=== PATIENT | female | born 1935 | race Caucasian/White ===

== ENCOUNTER 2017-04-30 22:26 | Inpatient (IN) | payer MEDICARE, OTHER, MEDICAID ==
[~2017-04-30] VITALS: Ht 170.2 cm; Wt 77.6 kg
--- NOTE | ~2017-04-30 | OR ---
PATIENT'S NAME: WINSTON [facility] AGE: 81 Y [address] ROOM: [place] [address] LOCATION: GPCU ADMIT DATE: 04/30/2017 OR/Procedure Report DISCHARGE DATE: FAMILY PHYSICIAN: Patricia Espinoza MD ATTENDING PHYSICIAN: CRISTIAN LUZ SURGEON: Cristian Luz MD DISHCLOTH FOLDER: DATE OF PROCEDURE: 05/01/2017 PREOPERATIVE DIAGNOSIS: Postoperative hematoma. POSTOPERATIVE DIAGNOSIS: Postoperative hematoma. PROCEDURE: Evacuation of hematoma of left arm. SPEEDER OPERATOR: MARY Wall. ANESTHESIA: General. ESTIMATED BLOOD LOSS: 100 mL. OPERATIVE FINDINGS: Just generalized oozing from all tissues structures within the operative wound cauterized and packed with Surgicel to stop bleeding. DESCRIPTION OF PROCEDURE: The patient was brought to the operating room emergently from the emergency room. The patient had a left arm brachiocephalic fistula placed early that day and was discharged home with a small hematoma present with a large hematoma some 12 hours later. The patient was prepped and draped in a sterile manner. Preoperative time-out was performed. The patient received preoperative antibiotics. We opened up her previous incision. We evacuated a large amount of clot. We copiously irrigated the wound, removing any further clot, the fistula was still palpable and working officially. After exploring the entire wound, we did not find a single bleeding source, but it appeared her entire tissue bed was just continuously oozing. We used Bovie cautery to Bovie all the oozing tissue and then packed the wound with Surgicel and then we closed the wound with interrupted nylon mattress sutures. The patient tolerated the procedure well and transferred to recovery room and then up to the floor. CRISTIAN LUZ MD PATIENT'S NAME: WINSTON [facility] AGE: 81 Y [address] ROOM: [place] [address] LOCATION: GPCU ADMIT DATE: 04/30/2017 OR/Procedure Report DISCHARGE DATE: FAMILY PHYSICIAN: Patricia Espinoza MD ATTENDING PHYSICIAN: CRISTIAN LZUM/modl /[id number] d: 05/01/17 1821 t: 05/05/17 1544, OPERATIVE SUMMARY
--- NOTE | ~2017-04-30 | ER ---
PATIENT'S NAME: WINSTON WHITLEY [facility] AGE: 81 Y [address] ROOM: [place] [address] LOCATION: GPCU ADMIT DATE: 04/30/2017 ER/Outpatient Report DISCHARGE DATE: FAMILY PHYSICIAN: Patricia Espinoza MD ATTENDING PHYSICIAN: GLENN LUZ CHIEF COMPLAINT: Surgical site bleeding. HISTORY OF PRESENT ILLNESS: Ms Whitley had a fistula creation by Dr. Luz earlier today. She has had significant bleeding and pain since then. Her blood pressures have been low today, lower than normal. She came into the ER at the direction of Dr. Luz. She has pain in her left arm. No other acute findings or concerns related to this issue today. PAST MEDICAL HISTORY: As documented on the record and have been reviewed by me. SOCIAL HISTORY: As documented on the record and have been reviewed by me. MEDICATIONS: As documented on the record and have been reviewed by me. ALLERGIES: DOCUMENTED ON THE RECORD AND HAVE BEEN REVIEWED BY ME. REVIEW OF SYSTEMS: All systems are reviewed and negative as pertinent to this issue other than discussed in HPI. PHYSICAL EXAMINATION: VITAL SIGNS: Blood pressure 90s/60s, pulse is in the 80s, respiratory rate 20, temperature 98.6, SpO2 is 90% on 2 L nasal cannula. Pain is 5/10. GENERAL: An elderly, frail-appearing female, in obvious discomfort. No respiratory distress, sitting upright on the exam table. NEUROLOGIC: Awake and alert. GCS 15. HEENT: Normocephalic, atraumatic. Eyes are PERRL. Oropharynx is clear, slightly dry. NECK: Supple. Trachea is midline. CHEST/HEART: Regular rate and rhythm. No murmurs. LUNGS: Grossly clear to auscultation. ABDOMEN: Benign. EXTREMITIES: Left upper extremity is notable for large area of ecchymosis. PATIENT'S NAME: WINSTON WHITLEY [facility] AGE: 81 Y [address] ROOM: [place] [address] LOCATION: GPCU ADMIT DATE: 04/30/2017 ER/Outpatient Report DISCHARGE DATE: FAMILY PHYSICIAN: Patricia Espinoza MD ATTENDING PHYSICIAN: GLENN LUZ No skin discoloration and tenderness at the surgical site on the left forearm. She has perfusion distally. She is neurovascularly intact otherwise. No deformities or other acute issues are visible. SKIN: Appears to be intact otherwise. LABORATORY DATA AND X-RAYS: None. IMPRESSION: Postsurgical bleeding. EMERGENCY DEPARTMENT COURSE: The patient was seen and evaluated by Dr. Luz. I gave her a medical screening exam initially upon evaluation in the emergency department. The patient will be taken to the operating room with Dr. Luz for further evaluation and treatment. MD NISHANT ABBOTT/marti /[id number] d: 05/01/17 0854 t: 05/04/17 1243, OUTPATIENT REPORT
--- NOTE | ~2017-04-30 | DS ---
PATIENT'S NAME: WINSTON MOORE [facility] AGE: 82 Y [address] ROOM: [address] [address] LOCATION: GPCU ADMIT DATE: 04/30/2017 Discharge Summary DISCHARGE DATE: 05/05/2017 FAMILY PHYSICIAN: Patricia Espinoza MD ATTENDING PHYSICIAN: Cristian Luz FINAL DIAGNOSIS: End-stage renal disease, left arm hematoma, postop arteriovenous fistula. SECONDARY DIAGNOSES: 1. Thrombocytopenia. 2. Chronic atrial fibrillation. 3. Long-term anticoagulation. 4. Essential hypertension. 5. Anemia of chronic kidney disease. 6. Pulmonary hypertension. 7. Chronic hypoxic respiratory failure. 8. Abdominal aortic aneurysm, postop repair. PROCEDURES: Left arm exploration and hematoma evacuation by Dr. Luz on 05/01/2017. CONSULTATIONS: Hospitalist for medication management. Implementation Architect, Dr. Jason Medina, for dialysis. HOSPITAL COURSE: This is an 81-year-old female who underwent elective creation of left upper extremity brachiocephalic fistula on 04/30/2017. The patient was discharged from this outpatient surgery with a small hematoma. Later in the evening, she returned to the emergency room with swelling, ecchymosis, and pain at site with low blood pressures. The patient was taken to the operating room after being evaluated in the emergency room by Dr. Luz on 05/01/2017 for evacuation of hematoma of the left arm. She was found to have generalized oozing from all tissue structures within the operative wound, which was cauterized and packed with Surgicel to stop bleeding. The patient tolerated the procedure well and after recovery was admitted to the progressive care unit for monitoring of telemetry, vitals, labs, surgical site, pain management, medications administration, and nursing assistance. The Hospitalist Team was consulted for medication management. The patient's Coumadin and aspirin were placed on hold due to prolonged bleeding. The patient's diet was advanced as tolerated. She received normal saline postoperatively as well as Ancef continued for 3 days. On postop day #1, her pain was found to be improved and blood pressure was controlled. Her hemoglobin was 9.0. Dr. Luz recommended holding anticoagulation for a total of 10 days. On postop day #2, the patient was found to have continued oozing and bloody drainage from this site with saturated dressing. Platelets PATIENT'S NAME: WINSTON MOORE [facility] AGE: 82 Y [address] ROOM: [id number] [place] [address] LOCATION: GPCU ADMIT DATE: 04/30/2017 Discharge Summary DISCHARGE DATE: 05/05/2017 FAMILY PHYSICIAN: Patricia Espinoza MD ATTENDING PHYSICIAN: Cristian Luz were noted to be 64, therefore the patient was transfused 2 units of platelets. Pain still improved. Generalized edema and ecchymosis to the left upper extremity, which was wrapped with compression wrap. On postop day #3, the patient did receive a chest x-ray for episode of hemoptysis. Impression, bilateral pleural fluid collection with adjacent lung consolidation, cardiac enlargement with vascular congestion, and aortic vascular stent and right jugular dialysis catheter in place. The patient received 100 mg of IV Lasix x1. Nephrology was consulted. The patient with known end-stage renal disease, requiring hemodialysis on Wednesday, Wednesday, and Wednesday. The patient was chronically started on dialysis, 03/31/2017. Once IV Ancef was completed, the patient was started on p.o. Levaquin 500 mg p.o. every 48 hours x4 doses. The patient had significant erythema, likely related to an inflammatory response. Ecchymosis to arm as expected. Also, on postop day #3, after dialysis, the patient had 7 beats of ventricular tachycardia. A stat magnesium, BMP, troponin, CK, CK-MB, lactate, procalcitonin, and prealbumin was drawn. On postop day #4, vitamin B12, repeat troponin, and cardiac enzymes were drawn and the patient was started on protein supplements for moderate protein malnutrition. She was also encouraged to use incentive spirometry. It was assumed the troponin leak was likely related to end-stage renal disease. EKG was reviewed by hospitalist. The patient with chronic atrial fibrillation and inverted T-waves. They recommend followup with encapsulator as soon as possible after discharge for diastolic congestive heart failure. On postop day #5, the patient was found in a stable condition to be discharged home. DIAGNOSTICS: Labs trending. White blood cell count 5, 6.2, 6.4, 8.6, and 8.2. Hemoglobin 9, 9.7, 9.2, 10.1, and 10. Platelets 55, 64, 96, 88, and 82. CPK is 1924. CK-MB 2 and 1.7. Troponin 0.059 and then less than 0.04. Lactate 2.6. Magnesium 2.1. Vitamin B12 of 441. DISCHARGE ORDERS: The patient is to be discharged home on a cardiac prudent diet. Activity as tolerated. She is to follow up with Dr. Espinoza in 5 to 7 days with CBC and CMS. She is to follow up with Dr. Luz in 2 weeks. She is to report any signs or symptoms of infection including increased redness, swelling, any fevers, chills, or new drainage. DISCHARGE MEDICATIONS: 1. Acetaminophen 325 to 650 mg p.o. every 4 hours as needed for mild pain. 2. Norvasc 5 mg p.o. daily. 3. Hydrocortisone cream 1 application rectally twice daily as needed for itching. 4. Benzocaine menthol 1 lozenge orally as needed for cough. 5. Claritin 10 mg p.o. every 48 hours. 6. Colace 100 mg p.o. twice daily as needed for constipation. 7. Coreg 25 mg p.o. daily. PATIENT'S NAME: WINSTON MOORE [facility] AGE: 82 Y [address] ROOM: [place] [address] LOCATION: GPCU ADMIT DATE: 04/30/2017 Discharge Summary DISCHARGE DATE: 05/05/2017 FAMILY PHYSICIAN: Patricia Espinoza MD ATTENDING PHYSICIAN: Cristian Luz 8. Dulcolax suppository 10 mg rectally every day as needed for constipation. 9. Flonase 50 mcg 1 spray nasally every day as needed for allergies. 10. Ipratropium/albuterol sulfate 1 dose inhaled 4 times daily as needed for shortness of breath. 11. Kayexalate 30 orally twice daily as needed for missed dialysis. 12. Synthroid 25 mcg p.o. every day before breakfast. 13. MiraLax 17 grams orally every day as needed for constipation. 14. Zofran 4 mg p.o. 4 times daily as needed for nausea. 15. Oxygen, continues per physician order, 2 L. 16. Pepcid 20 mg p.o. daily. 17. Prednisone 10 mg p.o. daily with food. 18. Vitamin D3, 2000 units p.o. daily. 19. [place] 5/325 one to two tablets p.o. every 4 hours as needed for pain. 20. Levaquin 500 mg p.o. every 48 hours. DISPOSITION: The patient is discharged home in a stable condition. She is to follow discharge orders as prescribed. Education about discharge including incisional care, medications, prescriptions, diet, activity, and followup appointments given to the patient. The patient verbalized understanding of the plan and had no further questions or concerns. She is to follow discharge orders as prescribed. SHERIDAN MONTOYA APRN FOR CRISTIAN LUZ MD TO/marti /[id number] d: 06/08/17 0141 t: 06/08/17 1459, DISCHARGE SUMMARY
--- NOTE | ~2017-04-30 | CON ---
PATIENT'S NAME: WINSTON [facility] AGE: 81 Y [address] ROOM: [place] [address] [facility] ADMIT DATE: 04/30/2017 Consultation DISCHARGE DATE: FAMILY PHYSICIAN: Patricia Espinoza MD ATTENDING PHYSICIAN: GLENN LUZ DATE OF CONSULTATION: 05/03/2017 REFERRING PHYSICIAN: GIANNI SYKES MD This is a [facility] Nephrology consultation. REASON FOR CONSULTATION: End-stage renal disease, on hemodialysis therapy. HISTORY OF PRESENT ILLNESS: This is an 81-year-old female patient, who is status post fistula creation by Dr. Luz on Wednesday, who developed a hematoma requiring evacuation later that day. The patient does have a history of end-stage renal disease and is on hemodialysis in [place] on Wednesday, Wednesday, and Wednesday. The patient was recently started on chronic dialysis on March 31, 2017. She currently runs on hemodialysis with a tunneled dialysis catheter for 4 hours, blood flow rate at 400, dialysis flow rate at 800 mL a minute, her estimated dry weight is 75.5 kg. She does run on a 2K bath with 2.25 calcium, 1.0 Mag, 139 sodium, and bicarbonate of 32. The patient was scheduled for outpatient left forearm AV fistula placement with Dr. Luz and according to the patient, the procedure did go well. She however subsequently later that day developed hematoma and did require a procedure to remove evacuated clot from the fistula by Dr. Luz. Therefore due to the patient's history of end-stage renal disease requiring hemodialysis therapy, Nephrology has been asked to consult and manage her dialysis while she is hospitalized. PAST MEDICAL HISTORY: 1. End-stage renal disease. 2. Atrial fibrillation. 3. Long-term anticoagulation. 4. Stenting of the aorta. 5. Renovascular hypertension. 6. Allergic rhinitis. 7. Constipation. 8. Hypothyroidism. 9. GERD. SOCIAL HISTORY: Reviewed. It is negative for any history of alcohol use, drug use, or smoking. FAMILY HISTORY: Reviewed and is noncontributory. There is no history of renal disease or dialysis. PATIENT'S NAME: WINSTON [facility] AGE: 81 Y [address] ROOM: [place] [address] [facility] ADMIT DATE: 04/30/2017 Consultation DISCHARGE DATE: FAMILY PHYSICIAN: Patricia Espinoza MD ATTENDING PHYSICIAN: GLENN LUZ ALLERGIES: METOPROLOL, ATORVASTATIN, NIACIN, AND HYDROCHLOROTHIAZIDE. CURRENT HOME MEDICATIONS: 1. Tylenol 325 mg q.4 hours p.r.n. pain. 2. Norvasc 5 mg daily. 3. Anusol-HC cream one application rectally b.i.d. p.r.n. itching. 4. Aspirin 81 mg daily. 5. Cepacol sore throat lozenge p.r.n. cough. 6. Claritin 10 mg daily. 7. Colace 100 mg twice a day p.r.n. constipation. 8. Coreg 25 mg daily. 9. Dulcolax 10 mg rectally daily. 10. Flonase 50 mcg two puffs nasally p.r.n. allergies. 11. Ipratropium albuterol 1 dose inhalation q.i.d. p.r.n. shortness of breath. 12. Kayexalate 30 g p.o. b.i.d. p.r.n. missed dialysis. 13. Synthroid 25 mcg daily. 14. MiraLax 17 g p.o. daily p.r.n. constipation. 15. Zofran 4 mg p.o. q.i.d. p.r.n. nausea. 16. Oxygen. 17. Pepcid 20 mg daily. 18. Deltasone 10 mg daily. 19. Vitamin D3 2000 units daily. 20. Coumadin 5 mg p.o. one day of the week and 2.5 mg six days of the week. 21. [place] 5/325 one to two tablets p.o. q.4 hours p.r.n. pain. REVIEW OF SYSTEMS: GENERAL: Fatigue EYES: No double vision or blurred vision. EARS: Hard of hearing NOSE: No epistaxis THROAT: No sore throat or cough RESPIRATORY: Dyspnea CARDIOVASCULAR: No chest pain or palpitations. GASTROINTESTINAL: No nausea or diarrhea. NO vomiting. GENITOURINARY: No frequency or hesitancy. MUSCULSKELETAL: generalized arthralgias, no new myalgias or arthralgias NEUROLOGICAL: No new numbness or tingling HEMATOLOGICAL: see HPI IMMUNOLOGICAL: no recent infections. PATIENT'S NAME: WINSTON [facility] AGE: 81 Y [address] ROOM: [id number] [place] [address] LOCATION: GPCU ADMIT DATE: 04/30/2017 Consultation DISCHARGE DATE: FAMILY PHYSICIAN: Patricia Espinoza MD ATTENDING PHYSICIAN: GLENN LUZ PHYSICAL EXAMINATION: VITAL SIGNS: Blood pressure is 105/75, pulse is 87, respirations 16, temperature is 97.7, weight is 80.5 kg. GENERAL: On exam, this is a very pleasant, elderly white female, who appears her approximate stated age, is in no acute distress. HEENT: Her head is normocephalic and atraumatic. Eyes: Pupils are equal, round, and reactive to light and accommodation. Nose midline. Mouth, no gingival bleeding. Throat without lymphadenopathy or carotid bruits. LUNGS: Lung sounds are clear to auscultation anteriorly and posteriorly. CARDIOVASCULAR: There is irregularly irregular rate and rhythm. Unable to appreciate any murmurs, rubs, or thrills. ABDOMEN: Soft, nontender, and nondistended. Bowel sounds positive. EXTREMITIES: Left upper extremity AV fistula with positive thrill noted. There is also ecchymotic area noted to the left upper arm. There is 1 to 2+ lower extremity edema bilaterally. NEUROLOGIC: Cranial nerves II through XII are grossly intact. LABORATORY DATA: Glucose 134, BUN is 48, creatinine 4.6, sodium 136, potassium 4.7, chloride 99, CO2 of 25, calcium 8.0, albumin 2.7, phos is 5.6, magnesium 2.1. ASSESSMENT AND PLAN: 1. End-stage renal disease, on hemodialysis. We will obtain the patient's outpatient clinical record and provide hemodialysis accordingly. At this time, the patient will initiate hemodialysis and run for 4 hours on a 2K bath. She will run at a blood flow of 400 mL/minute as well as dialysis flow rate of x1.5 the blood flow rate. She will be placed on dialysate bath of sodium 138 and bicarbonate 32. We will ultrafiltrate her as tolerated with labile blood pressures. We will utilize midodrine as needed as well as albumin. 2. Left arteriovenous fistula complication. The patient is status post evacuation of a hematoma with Dr. Luz. Further recommendations will be forthcoming. 3. Iron-deficiency anemia. The patient is to continue her regularly scheduled Venofer while on dialysis. 4. Anemia of chronic disease. Venofer. This patient has been seen and assessed by Dr. Medina. Her care is being conducted in consultation with Dr. Medina as well as me. We will plan further recommendations as they are forthcoming. JHONATAN LOPEZ DNP, CLAIM SERVICE REPRESENTATIVE FOR [facility] JAMEL MEDINA MD ENS/modl /[id number] d: 05/05/17 0013 t: 05/19/17 1012, CONSULTATION REPORT
--- NOTE | ~2017-04-30 | CON ---
PATIENT'S NAME: WINSTON MOORE [facility] AGE: 81 Y [address] ROOM: [place] [address] LOCATION: GPCU ADMIT DATE: 04/30/2017 Consultation DISCHARGE DATE: FAMILY PHYSICIAN: Patricia Espinoza MD ATTENDING PHYSICIAN: GLENN LUZ DATE OF CONSULTATION: 05/01/2017 REFERRING PHYSICIAN: GIANNI SYKES MD REQUESTING PHYSICIAN: Dr. Luz REASON FOR CONSULTATION: Postoperative management. HISTORY OF PRESENT ILLNESS: The patient is an 81-year-old female with past medical history most significant for end-stage renal disease, currently on hemodialysis through right-sided catheter. The patient has undergone an elective placement of a left upper extremity fistula earlier with Dr. Luz today. Apparently, this was an outpatient procedure and subsequently the patient developed a large hematoma around the op site and had to come back for an evacuation of that hematoma, which was just done. At this point, the patient reports that the pain that she had at the op site previously has resolved. She denies any chest pain, shortness of breath, nausea, vomiting, or diarrhea. REVIEW OF SYSTEMS: All systems have been reviewed and are negative aside from pertinent positives mentioned above. PAST MEDICAL HISTORY: This may not be complete as very limited information is available at this point in the night, but the patient does report a past medical history of atrial fibrillation, on anticoagulation; end-stage renal disease; and an open "stent" in her aorta. CURRENT MEDICATIONS: Unavailable, but being compiled by the nursing staff. SOCIAL HISTORY: Negative for any history of ongoing toxic habits. FAMILY HISTORY: PATIENT'S NAME: WINSTON MOORE [facility] AGE: 81 Y [address] ROOM: [place] [address] LOCATION: GPCU ADMIT DATE: 04/30/2017 Consultation DISCHARGE DATE: FAMILY PHYSICIAN: Patricia Espinoza MD ATTENDING PHYSICIAN: GLENN LUZ Reviewed and noncontributory. PHYSICAL EXAMINATION: VITAL SIGNS: Blood pressure 87/52, heart rate is in the 70s and irregular, saturating 96% on 3 L nasal cannula, afebrile, respirations 16. GENERAL: Appears as a chronically ill, elderly female, in no acute distress. NEUROLOGIC: Nonfocal. HEENT: Eye exam shows pupils are equal and reactive to light. LYMPHATIC: No cervical lymphadenopathy. ENDOCRINE: No thyromegaly. LUNGS: Clear to auscultation. HEART: Heart rate is irregular with no appreciable murmurs, gallops, or rubs. GI: Abdomen is soft, nontender, nondistended. : No costovertebral angle tenderness. VASCULAR: 2+ pedal pulses. EXTREMITIES: Left upper extremity exam is deferred. PSYCHIATRIC: Pleasant, but quite lethargic elderly female with appropriate mood, cognition, and affect. LABORATORY DATA: No studies are available as of now. IMPRESSION AND RECOMMENDATIONS: This is an 81-year-old female, postoperative day 0 for evacuation of hematoma around the site of recently placed arteriovenous fistula. We will help manage the patient's postoperative course. We will hold off on her antiplatelets and blood thinners as requested by Vascular Surgery. We will need to obtain some additional medical information in the morning. Thank you for allowing us to participate in the care of this yaquelin lady. Time dedicated to this patient's encounter is 15 minutes. MD NARINDER WILKINS/marti /[id number] d: 05/01/17 0524 t: 06/10/17 1826, CONSULTATION REPORT
[~2017-04-30 22:26] MED LIST changes: -LEVAQUIN500 MG PO
[2017-05-01 04:41] LABS: BASOPHIL # 0.1 K/uL (0.0-0.2); BASOPHIL % 1.2 %; EOSINOPHIL # 0.3 K/uL (0.0-0.5); EOSINOPHIL % 6.6 %; HEMATOCRIT 28.5 % (30.0-46.0); IMMATURE GRANULOCYTE % 0.8 %; LYMPHOCYTE # 0.6 K/uL (0.8-4.0); LYMPHOCYTE % 11.1 %; MCH 32.7 pg (27.0-34.0); MCHC 31.6 gm/dL (32.0-36.5); MCV 103.6 fl (83.0-98.0); MONOCYTE # 0.5 K/uL (0.0-1.0); MONOCYTE % 9.7 %; MPV 12.3 fl (9.4-12.4); NEUTROPHIL # (ANC) 3.6 K/uL (1.8-7.8); NEUTROPHIL % 70.6 %; NRBC % 0 /100WBC (0-0.00); RBC 2.75 M/uL (3.00-5.00); RDW-CV 18.3 % (11.9-14.6)
[2017-05-01 04:48] LABS: INR - (THERAPEUTIC) 1.31 (0.92-1.07); PROTIME 13.8 SECONDS (9.8-11.4)
[2017-05-01 04:51] LABS: PLATELET COUNT 55 K/uL (150-450)
[2017-05-01 04:59] LABS: ANION GAP 8.8 (10.0-19.0); CREATININE 2.7 mg/dL (0.5-1.1); POTASSIUM 3.8 mMol/L (3.7-5.1)
[2017-05-01 05:02] LABS: CALCIUM 7.4 mg/dL (8.5-10.5)
[2017-05-02 04:11] LABS: HEMATOCRIT 30.9 % (30.0-46.0); HEMOGLOBIN 9.7 g/dL (10.0-15.0); MCH 32.4 pg (27.0-34.0); MCHC 31.4 gm/dL (32.0-36.5); MCV 103.3 fl (83.0-98.0); MPV 11.7 fl (9.4-12.4); PLATELET COUNT 64 K/uL (150-450); RBC 2.99 M/uL (3.00-5.00); RDW-CV 18.4 % (11.9-14.6); WBC 6.2 K/uL (4.0-11.0)
[2017-05-02 04:28] LABS: ALBUMIN 2.7 gm/dL (3.5-5.0); CALCIUM 7.9 mg/dL (8.5-10.5); CREATININE 3.8 mg/dL (0.5-1.1); PHOSPHORUS 5.6 mg/dL (2.5-4.9)
[2017-05-02 04:47] LABS: ABSOLUTE NEUTROPHIL CT (ANC) 5.3 K/uL (1.8-7.8); BANDED NEUTROPHIL # 0.5 K/uL (0.0-0.1); BANDED NEUTROPHILS % 8 %; LYMPHOCYTE # 0.4 K/uL (0.8-4.0); LYMPHOCYTE % 7 %; MONOCYTE # 0.5 K/uL (0.0-1.0); SEGMENTED NEUTROPHIL # 4.8 K/uL (1.8-7.8); SEGMENTED NEUTROPHIL % 77 %
[2017-05-02 10:06] LABS: INR - (THERAPEUTIC) 1.14 (0.92-1.07)
[2017-05-03 03:45] LABS: BASOPHIL # 0.1 K/uL (0.0-0.2); BASOPHIL % 0.9 %; EOSINOPHIL # 0.3 K/uL (0.0-0.5); EOSINOPHIL % 3.9 %; HEMATOCRIT 29.4 % (30.0-46.0); HEMOGLOBIN 9.2 g/dL (10.0-15.0); IMMATURE GRANULOCYTE # 0.1 K/uL (0.0-0.3); IMMATURE GRANULOCYTE % 0.8 %; LYMPHOCYTE # 0.6 K/uL (0.8-4.0); LYMPHOCYTE % 8.8 %; MCH 32.6 pg (27.0-34.0); MCHC 31.3 gm/dL (32.0-36.5); MCV 104.3 fl (83.0-98.0); MONOCYTE # 0.6 K/uL (0.0-1.0); MONOCYTE % 9.4 %; MPV 11.6 fl (9.4-12.4); NEUTROPHIL # (ANC) 4.8 K/uL (1.8-7.8); NEUTROPHIL % 76.2 %; NRBC % 0.3 /100WBC (0-0.00); RBC 2.82 M/uL (3.00-5.00); RDW-CV 18.2 % (11.9-14.6); WBC 6.4 K/uL (4.0-11.0)
[2017-05-03 03:48] LABS: PLATELET COUNT 96 K/uL (150-450)
[2017-05-03 04:02] LABS: ALBUMIN 2.8 gm/dL (3.5-5.0); ANION GAP 16.7 (10.0-19.0); PHOSPHORUS 6.2 mg/dL (2.5-4.9); POTASSIUM 4.7 mMol/L (3.7-5.1)
[2017-05-03 04:04] LABS: CREATININE 4.6 mg/dL (0.5-1.1)
[2017-05-03 18:44] LABS: CALCIUM 7.5 mg/dL (8.5-10.5); CREATININE 2.9 mg/dL (0.5-1.1); MAGNESIUM 2.1 mg/dL (1.8-2.6)
[2017-05-04 04:50] LABS: BASOPHIL % 0.5 %; EOSINOPHIL % 0.3 %; HEMATOCRIT 30.8 % (30.0-46.0); HEMOGLOBIN 10.1 g/dL (10.0-15.0); IMMATURE GRANULOCYTE % 0.5 %; LYMPHOCYTE # 0.6 K/uL (0.8-4.0); LYMPHOCYTE % 6.4 %; MCH 33.6 pg (27.0-34.0); MCHC 32.8 gm/dL (32.0-36.5); MCV 102.3 fl (83.0-98.0); MONOCYTE # 0.8 K/uL (0.0-1.0); MONOCYTE % 9.2 %; MPV 11.9 fl (9.4-12.4); NEUTROPHIL # (ANC) 7.2 K/uL (1.8-7.8); NEUTROPHIL % 83.1 %; NRBC % 0.3 /100WBC (0-0.00); PLATELET COUNT 88 K/uL (150-450); RBC 3.01 M/uL (3.00-5.00); RDW-CV 18.9 % (11.9-14.6); WBC 8.6 K/uL (4.0-11.0)
[2017-05-04 15:22] LABS: CPK 24 IU/L (21-215)
[2017-05-05 03:45] LABS: BASOPHIL % 0.5 %; EOSINOPHIL # 0.1 K/uL (0.0-0.5); EOSINOPHIL % 1.2 %; HEMATOCRIT 30.3 % (30.0-46.0); IMMATURE GRANULOCYTE % 0.5 %; LYMPHOCYTE # 0.9 K/uL (0.8-4.0); LYMPHOCYTE % 10.4 %; MCH 33.8 pg (27.0-34.0); MCV 102.4 fl (83.0-98.0); MONOCYTE # 0.8 K/uL (0.0-1.0); MONOCYTE % 10.2 %; MPV 12.7 fl (9.4-12.4); NEUTROPHIL # (ANC) 6.3 K/uL (1.8-7.8); NEUTROPHIL % 77.2 %; NRBC % 0.9 /100WBC (0-0.00); PLATELET COUNT 82 K/uL (150-450); RBC 2.96 M/uL (3.00-5.00); RDW-CV 18.8 % (11.9-14.6); WBC 8.2 K/uL (4.0-11.0)
[2017-05-05 03:58] LABS: ALBUMIN 2.9 gm/dL (3.5-5.0); CALCIUM 8.3 mg/dL (8.5-10.5); PHOSPHORUS 5.4 mg/dL (2.5-4.9)
[2017-05-05 04:01] LABS: ANION GAP 19.2 (10.0-19.0); CREATININE 4.4 mg/dL (0.5-1.1); POTASSIUM 5.2 mMol/L (3.7-5.1)
[2017-05-05] MEDS ORDERED: LEVAQUIN500 MG PO (17:05)
== END 2017-05-05 18:40 | DRG 907 ==
LOC: GMED 22:26 → GPCU 23:55
PROVIDERS: Family Medicine; Internal Medicine; Nurse Practitioner; Nurse Practitioner Family; ADMIT Surgery Vascular Surgery
PROC: 0X390ZZ Control Bleeding in Left Upper Arm, Open Approach (ICD-10-PCS; principal; 2017-05-01)
PROC: 30243R1 Transfusion of Nonautologous Platelets into Central Vein, Percutaneous Approach (ICD-10-PCS; 2017-05-02)
DX: L76.02 Intraoperative hemorrhage and hematoma of skin and subcutaneous tissue complicating other procedure (principal); N18.6 End stage renal disease; I13.2 Hypertensive heart and chronic kidney disease with heart failure and with stage 5 chronic kidney disease, or end stage renal disease; D69.6 Thrombocytopenia, unspecified; I27.2 Other secondary pulmonary hypertension; I48.2 Chronic atrial fibrillation; I50.32 Chronic diastolic (congestive) heart failure; I77.0 Arteriovenous fistula, acquired; Y83.8 Other surgical procedures as the cause of abnormal reaction of the patient, or of later complication, without mention of misadventure at the time of the procedure; Y92.234 Operating room of hospital as the place of occurrence of the external cause; D63.1 Anemia in chronic kidney disease; Z99.2 Dependence on renal dialysis; Z79.01 Long term (current) use of anticoagulants
CPT/HCPCS: J0690; J1644; J1940; J2001; J2405; J2720; J7030; J7050; J7060; J7512; P9035; P9047

== ENCOUNTER → 2017-04-30 | Day surgery (SDC) | payer MEDICARE, OTHER, MEDICAID ==
[~2017-04-30] VITALS: Ht 170.2 cm; Wt 76.1 kg
[~2017-04-30] MED LIST: ANUSOL-HC CREAM30 GM R; ASPIRIN EC81 MG PO; CEPACOL SORE T1 EAC1; CEPACOL SORE T1 EAC1 PO; CLARITIN10 MG PO; COLACE100 MG PO; COREG25 MG PO; COUMADIN **IA2.5 MG PO; DELTASONE10 MG PO; DULCOLAX10 MG R; DUONEB INH; FLONASE 50 MCG/16 GM NOSE; KAYEXALATE POWDE1 GM PO; LEVAQUIN500 MG PO; MIRALAX17 GM PO; NORCO 5-325 TA1 EACH PO; NORVASC5 MG PO; OXYGEN M-15 INH; PEPCID20 MG PO; SYNTHROID25 MCG PO; TYLENOL325 MG PO; VITAMIN D32000 UNIT PO; ZOFRAN4 MG PO
--- NOTE | ~2017-04-30 | OR ---
PATIENT'S NAME: WINSTON MOORE [facility] AGE: 81 Y [address] ROOM: [place] [address] [place]: [facility] ADMIT DATE: 04/30/2017 OR/Procedure Report DISCHARGE DATE: FAMILY PHYSICIAN: Patricia Espinoza MD ATTENDING PHYSICIAN: CRISTIAN LUZ SURGEON: Cristian Luz MD CUSHION MAKER: DATE OF PROCEDURE: 04/30/2017 PREOPERATIVE DIAGNOSIS: End-stage renal disease. POSTOPERATIVE DIAGNOSIS: End-stage renal disease. PROCEDURE: Left arm brachiocephalic arteriovenous fistula. ROOM SERVICE BELLHOP: MARY [place]. ANESTHESIA: General. ESTIMATED BLOOD LOSS: 5 mL. OPERATIVE FINDINGS: Good thrill and bruit at the end of the case. Strong radial and ulnar signal at the end of the case. DESCRIPTION OF PROCEDURE: The patient was brought to the operating room, placed supine on the operating room table, and prepped and draped in a sterile manner. Preoperative time-out was performed. The patient received preoperative antibiotics. We made a standard incision 2 cm proximally to the antecubital fossa, dissected down the fascia, and incised the fascia in a longitudinal manner. We dissected out the brachial artery. We then dissected out the cephalic vein in a 360-degree fashion. We ligated and then transected it distally. We then gave 5000 units of heparin. We made arteriotomy a size of 4 mm after clamping on the artery. We then made a standard 6-0 Prolene anastomosis from the vein to the artery. We then removed the clamps. There was excellent flow in the fistula. Flow was confirmed using Doppler and then there was a positive radial and ulnar signal at the end of the case. Heparin was reversed with the use of protamine. Deep layers were closed with 2-0 and 3-0 Vicryl. Skin was closed with interrupted nylons. The patient tolerated the procedure well and transferred to recovery room and home later that day. CRISTIAN LUZ MD PATIENT'S NAME: WINSTON MOORE [facility] AGE: 81 Y [address] ROOM: [place] [address] [place] [facility] ADMIT DATE: 04/30/2017 OR/Procedure Report DISCHARGE DATE: FAMILY PHYSICIAN: Patricia Espinoza MD ATTENDING PHYSICIAN: CRISTIAN LUZ/kendral /[id number] d: 04/30/172017 t: 05/05/17 1544, OPERATIVE SUMMARY
[2017-04-30 06:39] LABS: BASOPHIL % 0.9 %; EOSINOPHIL # 0.3 K/uL (0.0-0.5); EOSINOPHIL % 6.7 %; HEMATOCRIT 32.6 % (30.0-46.0); HEMOGLOBIN 10.3 g/dL (10.0-15.0); IMMATURE GRANULOCYTE % 0.6 %; LYMPHOCYTE # 0.6 K/uL (0.8-4.0); LYMPHOCYTE % 12.5 %; MCH 32.3 pg (27.0-34.0); MCHC 31.6 gm/dL (32.0-36.5); MCV 102.2 fl (83.0-98.0); MONOCYTE # 0.5 K/uL (0.0-1.0); MONOCYTE % 10.1 %; NEUTROPHIL # (ANC) 3.2 K/uL (1.8-7.8); NEUTROPHIL % 69.2 %; NRBC % 0 /100WBC (0-0.00); PLATELET COUNT 71 K/uL (150-450); RBC 3.19 M/uL (3.00-5.00); RDW-CV 18.1 % (11.9-14.6); WBC 4.7 K/uL (4.0-11.0)
[2017-04-30 06:49] LABS: INR - (THERAPEUTIC) 1.38 (0.92-1.07); PROTIME 14.5 SECONDS (9.8-11.4)
[2017-04-30 06:53] LABS: ANION GAP 14.3 (10.0-19.0); CALCIUM 8.1 mg/dL (8.5-10.5); POTASSIUM 4.3 mMol/L (3.7-5.1); TOTAL BILIRUBIN 0.9 mg/dL (0.0-1.5); TOTAL PROTEIN 6.3 g/dL (6.0-8.4)
== END | disposition disaster alternative care site (69) ==
LOC: GPOC 04-29 13:00 → GSDC 05:14
PROVIDERS: Surgery Vascular Surgery
DX: I12.0 Hypertensive chronic kidney disease with stage 5 chronic kidney disease or end stage renal disease (principal); N18.6 End stage renal disease; I25.10 Atherosclerotic heart disease of native coronary artery without angina pectoris; I48.91 Unspecified atrial fibrillation; E78.00 Pure hypercholesterolemia, unspecified; I73.9 Peripheral vascular disease, unspecified; E78.5 Hyperlipidemia, unspecified; Z98.51 Tubal ligation status; Z98.890 Other specified postprocedural states; Z79.82 Long term (current) use of aspirin; Z79.01 Long term (current) use of anticoagulants; Z79.899 Other long term (current) drug therapy; Z88.8 Allergy status to other drugs, medicaments and biological substances
CPT/HCPCS: J0690; J1644; J2001; J2720; J7030